=== PATIENT | male | born 1985 | race Caucasian/White ===

== ENCOUNTER 2024-09-04 05:20 | Inpatient (IN) | payer OTHER ==
[~2024-09-04] VITALS: Ht 180.3 cm; Wt 93.0 kg
[2024-09-04] VITALS (11 sets, daily range): BP systolic 118–126; BP diastolic 73–92; PULSE 81–89; RESP 16–22; TEMP 97.2–98.1; O2SAT 94–99
[2024-09-04 06:37] LABS: BASOPHILS # (AUTO) 0.1 (0.0-0.1); BASOPHILS % 0.8 % (0.0-1.0); EOSINOPHILS # (AUTO) 0.4 (0.0-0.4); EOSINOPHILS % 4.8 % (0.0-6.0); HEMATOCRIT 44.8 % (38.2-49.6); HEMOGLOBIN 14.4 g/dL (14.0-18.0); LYMPHOCYTES # (AUTO) 2.6 (1.0-3.2); LYMPHOCYTES % 33.1 % (18.0-39.1); MEAN CORPUSCULAR HEMOGLOBIN 27.3 pg (28-32); MEAN CORPUSCULAR HGB CONC 32.1 g/dL (31-35); MEAN CORPUSCULAR VOLUME 84.8 fL (81-99); MONOCYTES # (AUTO) 0.9 (0.2-0.8); MONOCYTES % 11.9 % (4.4-11.3); NEUTROPHILS # (AUTO) 3.9 (2.1-6.9); NEUTROPHILS % 48.8 % (38.7-80.0); PLATELET COUNT 173 x10e3/uL (140-360); RED BLOOD COUNT 5.28 x10e6/uL (4.3-5.7); RED CELL DISTRIBUTION WIDTH 14.1 % (11.7-14.4); WHITE BLOOD COUNT 7.89 x10e3/uL (4.8-10.8)
[2024-09-04 06:50] LABS: INR 0.87; PARTIAL THROMBOPLASTIN TIME 30.3 seconds (23.8-35.5); PROTHROMBIN TIME 12.6 seconds (11.9-14.5)
[2024-09-04] MEDS: SODIUM CHLORIDE 0.9% 1000ML 1,000 ML IV STA (06:53)
[2024-09-04 07:02] LABS: ALBUMIN 3.5 g/dL (3.5-5.0); ALBUMIN/GLOBULIN RATIO 0.9 (0.8-2.0); ANION GAP 14.9 mmol/L (8-16); BILIRUBIN,TOTAL 0.4 mg/dL (0.2-1.2); CALCIUM 9.2 mg/dL (8.4-10.2); CREATININE, SERUM 1.18 mg/dL (0.72-1.25); POTASSIUM 3.9 mmol/L (3.5-5.1); TOTAL PROTEIN 7.5 g/dL (6.5-8.1)
[2024-09-04] MEDS: VANCOMYCIN HCL 1.25 GM in SODIUM CHLORIDE 0.9% 250ML 250 ML IV SCH (07:29)
[2024-09-04] MEDS: HYDROCODONE/APAP 7.5MG-325MG 1 EA TAB PO PRN (08:12)
[2024-09-04] MEDS: ONDANSETRON HCL INJ 2MG/ML 2ML 2 MG/ML VIAL IV PRN (08:12)
[2024-09-04] MEDS ORDERED: ELIQUIS5 MG PO (09:53)
[2024-09-04] MEDS ORDERED: ACETAMINOPHEN 325 MG TAB PO PRN (12:45)
[2024-09-04] MEDS ORDERED: POLYETHYLENE GLYCOL 3350 17 GM PACK PO PRN (12:45)
[2024-09-04] MEDS ORDERED: HYDRALAZINE HCL 20 MG/ML VIAL IV PRN (12:45)
[2024-09-04] MEDS: SODIUM CHLORIDE 0.9% 1000ML 1,000 ML IV SCH (14:34)
[2024-09-04] MEDS: DOCUSATE SODIUM 100 MG CAP PO SCH (17:00)
[2024-09-04] MEDS: MAGNESIUM OXIDE 400 MG TAB PO SCH (17:05)
[2024-09-04] MEDS: ASCORBIC ACID 500 MG TAB PO SCH (17:05)
[2024-09-04] MEDS: APIXABAN 5 MG TABLET PO SCH (17:05)
[2024-09-04] MEDS: ZINC SULFATE 50 MG CAP PO SCH (17:05)
[2024-09-04] MEDS: CALCIUM CARBONATE/VITAMIN D3 500 MG TAB PO SCH (17:05)
[2024-09-04] MEDS: FAMOTIDINE 20 MG TAB PO SCH (17:05)
[2024-09-04] MEDS ORDERED: MELATONIN 5 MG TABLET PO PRN (21:00)
[2024-09-05] VITALS (7 sets, daily range): BP systolic 122–141; BP diastolic 77–96; PULSE 66–81; RESP 18–20; TEMP 97.5–97.7; O2SAT 94–96
[2024-09-05 06:42] LABS: BASOPHILS # (AUTO) 0.1 (0.0-0.1); BASOPHILS % 0.9 % (0.0-1.0); EOSINOPHILS # (AUTO) 0.4 (0.0-0.4); EOSINOPHILS % 5.3 % (0.0-6.0); HEMATOCRIT 46.5 % (38.2-49.6); HEMOGLOBIN 14.8 g/dL (14.0-18.0); LYMPHOCYTES # (AUTO) 2.5 (1.0-3.2); LYMPHOCYTES % 32.6 % (18.0-39.1); MEAN CORPUSCULAR HEMOGLOBIN 26.9 pg (28-32); MEAN CORPUSCULAR HGB CONC 31.8 g/dL (31-35); MEAN CORPUSCULAR VOLUME 84.4 fL (81-99); MONOCYTES # (AUTO) 0.8 (0.2-0.8); MONOCYTES % 10.7 % (4.4-11.3); NEUTROPHILS # (AUTO) 3.8 (2.1-6.9); PLATELET COUNT 121 x10e3/uL (140-360); RED BLOOD COUNT 5.51 x10e6/uL (4.3-5.7); RED CELL DISTRIBUTION WIDTH 13.7 % (11.7-14.4); WHITE BLOOD COUNT 7.55 x10e3/uL (4.8-10.8)
[2024-09-05 07:11] LABS: ALBUMIN 3.3 g/dL (3.5-5.0); ALBUMIN/GLOBULIN RATIO 0.8 (0.8-2.0); ANION GAP 14.3 mmol/L (8-16); BILIRUBIN,TOTAL 0.5 mg/dL (0.2-1.2); CALCIUM 9.1 mg/dL (8.4-10.2); CREATININE, SERUM 1.17 mg/dL (0.72-1.25); POTASSIUM 4.3 mmol/L (3.5-5.1); TOTAL PROTEIN 7.3 g/dL (6.5-8.1)
[2024-09-05 07:13] LABS: CHOL/HDL RATIO 7.6 (3.9-4.7); MAGNESIUM 1.9 MG/DL (1.3-2.1); PHOSPHORUS 3.6 MG/DL (2.3-4.7)
[2024-09-05 07:33] LABS: THYROID STIMULATING HORMONE 0.452 uIU/mL (0.350-4.940)
[2024-09-05] MEDS: MULTIVITAMINS/MINERALS TAB PO SCH (08:37)
[2024-09-06] VITALS (8 sets, daily range): BP systolic 110–132; BP diastolic 63–89; PULSE 60–76; RESP 18–20; TEMP 97.5–98; O2SAT 94–96
[2024-09-06] MEDS ORDERED: LIDOCAINE HCL 2% LOCAL INJ 5 ML SDV VIAL INJ ONE (16:02)
[2024-09-06] MEDS ORDERED: FENTANYL CITRATE/PF 100MCG/2 ML INJ ONE ×2 (16:02→16:39)
[2024-09-06] MEDS ORDERED: PROPOFOL IV EMULSION 10 MG/ML 20 ML VIAL ONE (16:02)
[2024-09-06] MEDS ORDERED: MIDAZOLAM HCL 2 MG/2 ML VIAL ONE (16:14)
[2024-09-06] MEDS ORDERED: DEXAMETHASONE SOD PHOS INJ 4 MG/ML SDV ONE (16:22)
[2024-09-06] MEDS ORDERED: ONDANSETRON HCL INJ 2MG/ML 2ML 2 MG/ML VIAL ONE (16:22)
[2024-09-06] MEDS ORDERED: SODIUM CHLORIDE 0.9% 100 ML ONE (16:27)
[2024-09-06] MEDS ORDERED: PHENYLEPHRINE HCL 1% 10 MG/ML VIAL ONE (16:27)
[2024-09-06] MEDS ORDERED: HYDROCODONE/APAP 7.5MG-325MG 1 EA TAB PO PRN (17:00)
[2024-09-06] MEDS: NICOTINE 21 MG/EA PATCH TOP SCH (19:05)
[2024-09-06] MEDS ORDERED: MUPIROCIN22 GM TOP (19:23)
[2024-09-06] MEDS ORDERED: BACTRIM DS TAB1 EACH PO (19:23)
[2024-09-06] MEDS ORDERED: ACETAMINOPHEN-1 EAC4 PO (19:23)
== END 2024-09-06 20:06 | disposition home or self-care (01) | DRG 572 ==
LOC: ER 06:15 → ERHOLD 07:38 → MED/SURG3 08:50
PROVIDERS: ADMIT Internal Medicine; ATTEND Internal Medicine
PROC: 0JBM0ZZ Excision of Left Upper Leg Subcutaneous Tissue and Fascia, Open Approach (ICD-10-PCS; principal; 2024-09-06 16:17)
DX: L03.116 Cellulitis of left lower limb (principal); L02.416 Cutaneous abscess of left lower limb; E86.0 Dehydration; S70.362A Insect bite (nonvenomous), left thigh, initial encounter; F90.9 Attention-deficit hyperactivity disorder, unspecified type; W57.XXXA Bitten or stung by nonvenomous insect and other nonvenomous arthropods, initial encounter; Z79.01 Long term (current) use of anticoagulants; Z86.718 Personal history of other venous thrombosis and embolism; F17.210 Nicotine dependence, cigarettes, uncomplicated
CPT/HCPCS: 36415; 80053; 80061; 80202; 83036; 83735; 84100; 84439; 84443; 85025; 85610; 85730; 87040; 87071; 87075; 87186; 87205; 94799; 99252; 99284; J1100; J2003; J2250; J2371; J2405; J2543; J7030; J7050